=== PATIENT | female | born 1985 ===

== ENCOUNTER 2016-10-09 06:01 | Emergency (ER) | payer BC | END 2016-10-09 08:19 | disposition short-term general hospital (02) | LOC: ER 06:01 | DX: S16.1XXA Strain of muscle, fascia and tendon at neck level, initial encounter (principal); S40.012A Contusion of left shoulder, initial encounter; S70.12XA Contusion of left thigh, initial encounter; R51 Headache; V89.2XXA Person injured in unspecified motor-vehicle accident, traffic, initial encounter; Y92.411 Interstate highway as the place of occurrence of the external cause ==